=== PATIENT | female | born 1930 | race Caucasian/White ===

== ENCOUNTER → 2016-09-25 | Outpatient (CLI) | payer OTHER ==
[~2016-09-25] MED LIST: ZITHROMAX Z-PA250 MG PO
== END | disposition home or self-care (01) ==
LOC: NUC 10:51
DX: M25.551 Pain in right hip (principal); M19.011 Primary osteoarthritis, right shoulder; M19.012 Primary osteoarthritis, left shoulder; M41.9 Scoliosis, unspecified; Z96.641 Presence of right artificial hip joint; M17.11 Unilateral primary osteoarthritis, right knee; M19.072 Primary osteoarthritis, left ankle and foot
CPT/HCPCS: 78315; A9503

== ENCOUNTER 2017-06-28 16:51 | Emergency (ER) | payer OTHER ==
[~2017-06-28] VITALS: Ht 147.3 cm; Wt 56.0 kg
[2017-06-28 17:23] LABS: HEMATOCRIT 39.1 % (36.0-46.0); MCH 32.7 PG (29.0-34.0); MCHC 32.7 G/DL (30.0-36.0); MEAN PLAT.VOLUME 9.9 uM^3 (9.5-12.4); PLATELET COUNT 240 K/uL (156-360); RBC DIS.WIDTH-CV 12.1 % (11.8-14.6); RBC DIS.WIDTH-SD 44.2 % (39-53); RED BLOOD COUNT 3.91 M/uL (3.80-5.20); WHITE BLOOD COUNT 7.9 K/uL (4.1-10.2)
[2017-06-28 17:33] LABS: CHLORIDE 104 mEq/L (99-109); POTASSIUM 3.8 mEq/L (3.7-5.4); SODIUM 137 mEq/L (136-147)
[2017-06-28 17:35] LABS: GLUCOSE 98 mg/dL (70-99)
[2017-06-28 17:37] LABS: ANION GAP 5 MEQ/L (2-14)
[2017-06-28 17:39] LABS: GFR ESTIMATE (CALCULATED) > 59 mL/min/
[2017-06-28 17:40] LABS: UREA NITROGEN (BUN) 21 mg/dL (9-23)
[2017-06-28 17:45] LABS: TROP-I INTERPRETATION NEGATIVE; TROPONIN-I < 0.01 ng/mL (0.0-0.30)
[2017-06-28 19:06] VITALS: BP 154/80
== END 2017-06-28 19:08 | disposition home or self-care (01) ==
LOC: EME 16:51
DX: R06.02 Shortness of breath (principal); K21.9 Gastro-esophageal reflux disease without esophagitis; E78.5 Hyperlipidemia, unspecified; I10 Essential (primary) hypertension
CPT/HCPCS: 71020; 80048; 84484; 85027; 85379; 93005; 99281; 99284